=== PATIENT | female | born 1960 | race Two or more races ===

== ENCOUNTER 2024-09-02 15:30 | Inpatient (IN) | payer OTHER ==
[~2024-09-02] VITALS: Ht 157.5 cm; Wt 88.0 kg
[2024-09-02] MEDS ORDERED: ROSUVASTATIN CA20 MG PO (15:54)
[2024-09-02] MEDS ORDERED: ZESTRIL40 M1 PO (15:54)
[2024-09-02] MEDS ORDERED: GLIPIZIDE10 MG PO (15:54)
[2024-09-02] MEDS ORDERED: GRALISE600 MG PO (15:55)
[2024-09-02] MEDS ORDERED: HYDROCHLOROTH12.5 M2 PO (15:55)
[2024-09-02] MEDS ORDERED: CARVEDILOL ER40 MG PO (15:56)
[2024-09-02] MEDS ORDERED: ECOTRIN81 MG PO (15:56)
[2024-09-02] MEDS ORDERED: NIFEDIPINE 10 MG CAPSULE PO ONE ×2 (16:30→17:27)
[2024-09-02 18:45] LABS: ABG PO2 69.7 mmHg (80-100); ABG pCO2 30.1 mmHg (35-45); BASE EXCESS -2.3 mmol/l; BICARBONATE 20.4 mmol/l (23-25); SaO2 94.5 %; Tco2 21.4 mmol/l
[2024-09-02 18:45] LABS: HEMATOCRIT 35.9 % (36.0-45.00); HEMOGLOBIN 11.9 g/dL (12.0-15.00); MEAN CELL VOLUME 87.5 fL (80.00-100.00); MEAN CORPUSCULAR HEMOGLOBIN 28.9 pg (27.00-32.0); PLATELET COUNT 173 K/uL (150-450); RED BLOOD COUNT 4.11 M/uL (4.00-6.00)
[2024-09-02] MEDS ORDERED: LEVALBUTEROL HCL 1.25 MG/3 ML SOLUTION IH ONE ×2 (18:51→19:00)
[2024-09-02 19:02] LABS: allen test SATISFACTORY; o2 21 %; puncture site RADIAL RIGHT
[2024-09-02 19:12] LABS: INR 1.04; PARTIAL THROMBOPLASTIN TIME 28.3 SECONDS (22.0-34.0); PROTHROMBIN TIME 11.3 SECONDS (9.0-11.5)
[2024-09-02 19:20] LABS: ALBUMIN 3.5 gm/dL (3.4-5.0); BILIRUBIN TOTAL 0.67 mg/dL (0.3-1.2); CREATININE SERUM 1.23 mg/dL (0.55-1.02); GFR 43.82; GLOBULINA 3.7 G/DL (2.4-3.5); POTASSIUM 3.79 mEq/L (3.5-5.1); TOTAL PROTEIN 7.2 gm/dL (6.4-8.2)
[2024-09-02] MEDS ORDERED: LABETALOL HCL 200 MG/40 ML VIAL IV ONE (21:30)
[2024-09-02] MEDS ORDERED: LABETALOL HCL 100 MG/20 ML ML ONE (21:55)
[2024-09-02] MEDS ORDERED: INSULIN REGULAR, HUMAN 1,000 UNIT/10 ML UNITS IV ONE (23:30)
[2024-09-02] MEDS ORDERED: INSULIN LISPRO 1,000 UNIT/10 ML UNITS SUBCUTANEO PRN (23:45)
[2024-09-02] MEDS ORDERED: DEXTROSE 50 % IN WATER 0.5 G/ML DISP.SYRIN IV PRN (23:45)
[2024-09-02] MEDS ORDERED: NITROGLYCERIN IN 5 % DEXTROSE 250 ML IV SCH (23:45)
[2024-09-03] VITALS (17 sets, daily range): BP systolic 137–194; BP diastolic 67–106; O2SAT 84–99
[2024-09-03] MEDS ORDERED: IPRATROPIUM BROMIDE 0.5 MG/2.5 ML AMPUL.NEB IH SCH (01:00)
[2024-09-03] MEDS ORDERED: FUROsemide 20 MG/2 ML VIAL IV SCH (01:00)
[2024-09-03] MEDS ORDERED: NITROGLYCERIN IN 5 % DEXTROSE 50 MG/250 ML BOTTLE IV ONE (03:21)
[2024-09-03] MEDS ORDERED: FUROsemide 20 MG/2 ML VIAL ONE (03:39)
[2024-09-03 07:03] LABS: CHOL HDL RATIO 2.1 (0-5.0)
[2024-09-03 07:04] LABS: TSH 2.64 uIU/mL (0.358-3.74)
[2024-09-03] MEDS ORDERED: NITROGLYCERIN IN 5 % DEXTROSE 250 ML IV SCH (08:00)
[2024-09-03] MEDS ORDERED: CLEVIDIPINE BUTYRATE 100 ML IV SCH (08:15)
[2024-09-03] MEDS ORDERED: ENOXAPARIN SODIUM 40 MG/0.4 ML SYRINGE SUBCUTANEO SCH (09:00)
[2024-09-03] MEDS ORDERED: ATORVASTATIN CALCIUM 40 MG TABLET PO SCH (09:00)
[2024-09-03] MEDS ORDERED: FAMOTIDINE/PF 20 MG in 0.9 % SODIUM CHLORIDE 8 ML IV PUSH SCH (09:00)
[2024-09-03] MEDS ORDERED: ASPIRIN 81 MG TAB.CHEW PO SCH (09:00)
[2024-09-03] MEDS ORDERED: CARVEDILOL 25 MG TABLET PO SCH (09:00)
[2024-09-03 09:53] LABS: URINE APPEARANCE Clear; URINE BILIRRUBIN Negative (NEGATIVE); URINE BLOOD Negative; URINE COLOR Yellow; URINE GLUCOSE Negative (NEGATIVE); URINE KETONE Negative (NEGATIVE); URINE LEUKOCYTE Negative; URINE NITRATE Negative; URINE PROTEIN Negative (NEGATIVE); URINE UROBILINOGEN 0.2 E.U./dl
[2024-09-03 10:02] LABS: URINE BACTERIA 28.1 uL (0.0-1933); URINE EPITHELIAL CELLS 2.8 uL (0.0-38.8); URINE WBC 2.5 uL (0.0-23.2)
[2024-09-03 10:43] LABS: URINE CAST 0.29 uL (0.0-1.40)
[2024-09-03] MEDS ORDERED: GABAPENTIN 300 MG CAPSULE PO NR (12:00)
[2024-09-04] VITALS (15 sets, daily range): BP systolic 133–190; BP diastolic 63–82; O2SAT 94–100
[2024-09-04] MEDS ORDERED: hydrALAZINE HCL 50 MG TABLET PO SCH (01:00)
[2024-09-04] MEDS ORDERED: GABAPENTIN 300 MG CAPSULE PO SCH (09:00)
[2024-09-04] MEDS ORDERED: HYDROCHLOROTHIAZIDE 12.5 MG CAPSULE PO SCH (09:00)
[2024-09-04 11:03] LABS: HEMATOCRIT 30.9 % (36.0-45.00); HEMOGLOBIN 10.6 g/dL (12.0-15.00); MEAN CELL VOLUME 86.6 fL (80.00-100.00); MEAN CORPUSCULAR HEMOGLOBIN 29.6 pg (27.00-32.0); MEAN CORPUSCULAR HGB CONC 34.2 g/dl (32.0-36.0); RED BLOOD COUNT 3.57 M/uL (4.00-6.00); RED CELL DISTRIBUTION WIDTH 16.3 % (11.5-14.5)
[2024-09-04 11:13] LABS: PLATELET COUNT 146 K/uL (150-450)
[2024-09-04 11:44] LABS: ALBUMIN 2.9 gm/dL (3.4-5.0); BILIRUBIN TOTAL 0.84 mg/dL (0.3-1.2); CALCIUM 7.9 mg/dL (8.5-10.1); CREATININE SERUM 1.27 mg/dL (0.55-1.02); GFR 42.23; GLOBULINA 3.4 G/DL (2.4-3.5); POTASSIUM 3.38 mEq/L (3.5-5.1); TOTAL PROTEIN 6.3 gm/dL (6.4-8.2)
[2024-09-05 02:52] VITALS: BP 163/79
[2024-09-05] MEDS ORDERED: LISINOPRIL 40 MG TABLET PO SCH (09:00)
[2024-09-05] MEDS ORDERED: HYDROCHLOROTHIAZIDE 25 MG TABLET PO SCH (09:00)
[2024-09-05 09:27] VITALS: BP 155/72; O2SAT 96
[2024-09-05 09:49] LABS: CALCIUM 8.4 mg/dL (8.5-10.1); CREATININE SERUM 1.44 mg/dL (0.55-1.02); GFR 36.53; POTASSIUM 3.18 mEq/L (3.5-5.1)
[2024-09-05] MEDS ORDERED: 0.9 % SODIUM CHLORIDE 1,000 ML IV SCH (10:30)
[2024-09-05 17:49] VITALS: BP 150/59
[2024-09-06] MEDS ORDERED: hydrALAZINE HCL 50 MG TABLET PO SCH (01:00)
[2024-09-06] MEDS ORDERED: hydrALAZINE HCL 25 MG TABLET PO ONE (02:32)
[2024-09-06 02:58] VITALS: BP 146/79
[2024-09-06 05:45] LABS: HEMATOCRIT 34.6 % (36.0-45.00); HEMOGLOBIN 11.5 g/dL (12.0-15.00); MEAN CELL VOLUME 86.6 fL (80.00-100.00); MEAN CORPUSCULAR HEMOGLOBIN 28.7 pg (27.00-32.0); MEAN CORPUSCULAR HGB CONC 33.2 g/dl (32.0-36.0); PLATELET COUNT 178 K/uL (150-450); RED BLOOD COUNT 3.99 M/uL (4.00-6.00); RED CELL DISTRIBUTION WIDTH 16.4 % (11.5-14.5)
[2024-09-06 06:40] LABS: CALCIUM 8.4 mg/dL (8.5-10.1); CREATININE SERUM 1.42 mg/dL (0.55-1.02); GFR 37.13; POTASSIUM 3.49 mEq/L (3.5-5.1)
[2024-09-06] MEDS ORDERED: hydrALAZINE HCL 25 MG,hydrALAZINE HCL 50 MG PO SCH (09:00)
[2024-09-06] MEDS ORDERED: FUROsemide 20 MG/2 ML VIAL IV SCH (09:00)
[2024-09-06 09:55] VITALS: BP 146/65; O2SAT 98
[2024-09-06] MEDS ORDERED: hydrALAZINE HCL 25 MG TABLET PO SCH (17:00)
[2024-09-07 03:13] VITALS: BP 154/68
[2024-09-07 08:56] VITALS: BP 164/65
== END 2024-09-07 13:08 | disposition home or self-care (01) | DRG 683 ==
LOC: ER 15:33 → ICU-2 23:48 → ICU 23:48 → O/R 09-04 12:24 → ICU 09-04 12:26 → MEDJ 09-04 18:18 → ICU 09-04 18:19 → MEDJ 09-04 20:26
PROVIDERS: General Practice; ADMIT Student in an Organized Health Care Education/Training Program; ATTEND Student in an Organized Health Care Education/Training Program
PROC: B24BYZZ Ultrasonography of Heart with Aorta using Other Contrast (ICD-10-PCS; principal; 2024-09-02)
PROC: 4A12X45 Monitoring of Cardiac Electrical Activity, Ambulatory, External Approach (ICD-10-PCS; 2024-09-04)
DX: N17.9 Acute kidney failure, unspecified (principal); I16.9 Hypertensive crisis, unspecified; E87.6 Hypokalemia; E11.9 Type 2 diabetes mellitus without complications; Z79.4 Long term (current) use of insulin